=== PATIENT | male | born 1975 | race Caucasian/White ===

== ENCOUNTER 2016-11-07 14:20 | Emergency (ER) | payer OTHER ==
--- NOTE | ~2016-11-07 | CR195 ---
[facility] A Service of [facility] RADIOLOGY TEXT RESULTS PATIENT: MATTHIAS KING LOCATION: SED : 77 UNIT #: [id number] AGE: [address]: Lynn Candelaria APRN SEX: M ORDER DR: [id number] [place] [id number] E MR#: [id number] Acc #: [id number] NAME: MATTHIAS KING : 1975 SEX: M STUDY DATE/TIME: 11/07/2016 14:40 UNIT: SED ROOM: STUDY DESCRIPTION: Neck Soft Tissue Attending Physician: Lynn Candelaria A.P.R.N. Ordering Physician: Lynn Candelaria A.P.R.N. MEDICAL IMAGING REPORT This report is preliminary unless electronic signature is present. EXAM Soft tissue neck series 11/07/2016 INDICATIONS 41-year-old male with swelling and painful swallowing for 3 days. TECHNIQUE 2 views of the neck soft tissues were performed. COMPARISON STUDIES No comparisons. FINDINGS Prevertebral soft tissues are unremarkable. No retained opaque foreign body. Tracheal air column appears within normal limits. Epiglottis suboptimally visualized but also within normal limits. If symptoms persist or clinically warranted, CT could be pursued for further assessment. Probable faint carotid artery calcifications on the right. IMPRESSION 1. Negative soft tissue neck series. Dictated by... Markel Singh M.D. THIS IS AN ELECTRONICALLY VERIFIED REPORT Markel Singh M.D. 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
[~2016-11-07 14:20] MED LIST: BACTRIM DS TABL1 TA1 PO; BACTROBAN22 GM EXT; BENTYL10 M1 PO; CIPRO PO; DIAZEPAM PO; LOMOTIL TABLET1 TAB PO; LORTAB 10/500 T1 TAB PO; NAPROSYN500 MG PO; NO MEDICATIONS; VICODIN 5/1 TAB 5/50 PO; VOLTAREN75 MG PO; ZOFRAN ODT4 MG
== END 2016-11-07 16:58 | disposition home or self-care (01) ==
LOC: SED 14:20
DX: J02.0 Streptococcal pharyngitis (principal); F32.9 Major depressive disorder, single episode, unspecified; F41.9 Anxiety disorder, unspecified; F17.200 Nicotine dependence, unspecified, uncomplicated
CPT/HCPCS: 70360; 87880; 96372; 99283; J0561; J1100